=== PATIENT | female | born 1935 | race Caucasian/White ===

== ENCOUNTER 2016-11-20 09:20 | Day surgery (SDC) | payer MEDICARE ==
[~2016-11-20] VITALS: Ht 162.6 cm; Wt 65.8 kg
--- NOTE | 2016-11-20 07:45 | PCM.HPANE ---
Patient Data Surgeon Admitting Provider: Attending Provider:Hank Graham MD Primary Care Physician:Tim Calderon MD Other Provider:[facility] Reason for Visit Diarrhea In Adult Patient Ht/WT & BMI Body Mass Index Allergies Coded Allergies: Penicillins (Verified Allergy, Severe, Anaphylaxis, 05/28/12) ciprofloxacin (Verified Allergy, Intermediate, 05/28/12) SORE JOINTS ciprofloxacin HCl (Verified Allergy, Intermediate, 05/28/12) SORE JOINTS Past Anesthesia History Anesthesia History: Denies:: Anesthesia Reactions Medications Reported Medications Ascorbate Calcium (Vitamin C)500 Mg Tablet1,000 Mg PO 11/18/16 Acetaminophen (Tylenol Arthritis)650 Mg Tablet.er650 Mg PO 11/18/16 Tolterodine Tartrate ER 4 Mg Capsule4 Mg PO DAILY 11/18/16 Metoprolol Succinate ER 100 Mg Tab.er.52g124 Mg PO DAILY Ref 0 11/18/16 Melatonin/Pyridoxine HCl (B6) (Melatonin 3 mg Tablet)1 Each Tablet1 Each PO DAILY 11/18/16 Loperamide 2 Mg Capsule2 Mg PO Q4H 11/18/16 Lisinopril 20 Mg Xatffh85 Mg PO DAILY 30 Days Ref 0 11/18/16 Apixaban (Eliquis)5 Mg Tablet5 Mg PO BID 11/18/16 Chlorthalidone 25 Mg Okhsfj79.5 Mg PO DAILY #30 TABLET 11/18/16 Multivits-Min/FA/Lycopene/Lut (Centrum Silver Tablet)1 Each Tablet1 Each PO 11/18/16 Discontinued Reported Medications Potassium Chloride ER 10 Meq Uwpazj55 Meq PO BID Ref 0 TAKE WITH FOOD 11/18/16 Cephalexin 500 Mg Dtwcov620 Mg PO QID #40 TABLET Ref 0 11/18/16 Doxycycline (Vibramycin)100 Mg Mkaxly807 Mg PO BID 7 Days 05/29/12 Metoprolol Suc-Expunged Drug, Do Not Renew! 50 Mg Iahm920 Mg PO DAILY #60 TAB 05/29/12 Trimethoprim-Expunged Drug, Do Not Renew! (Proloprim-Expunged Drug, Do Not Renew !)100 Mg Wjc180 Mg PO PRN 05/27/12 Sulfa/Trimethoprim-Expunged Drug, Do Not Daniele (Septra 80/400-Expunged Drug, Do Not Renew!)1 Tab Tablet1 Tab PO UD Take as needed if bladder infection 05/27/12 Spironolactone-Expunged Drug, Do Not Renew! 25 Mg Ifvtft32 Mg PO DAILY 05/27/12 Multivitamin (Multi-Vitamin Daily)1 Each Tablet1 Each PO DAILY 05/27/12 Lisinopril-Expunged Drug, Do Not Renew! 40 Mg Anaame26 Mg PO DAILY Hold for SBP < 90 05/27/12 Krill/[place]-3/Dha/Epa/Lipids (Krill Oil 300 Mg Softgel)1 Each Capsule1 Each PO DAILY 05/27/12 Chlorthalidone-Expunged Drug, Do Not Renew! 25 Mg Tablet0.5 Tab PO DAILY Take 1/2 tab (12.5mg) daily 05/27/12 Aspirin-Expunged Drug, Do Not Renew! (Low Dose Aspirin-Expunged Drug, Do Not Renew!)81 Mg Tablet.dr81 Mg PO DAILY 05/27/12 History History of ENT Problems?: No HEENT History: Denies:: Abnormal Airway Cataracts Difficult Intubation Dysphagia Glaucoma Hearing Problem Sinus Problem TMJ Denture Type: None Teeth Condition: Within Normal Limits Hx of Heart Problems?: Yes Cardiovascular History: Positive for:: AICD Hypertension Irregular Heartbeat (ATRIAL FIBRILLATION/PAROXYSMAL) Denies:: Abdominal Aortic Aneurism Atrial Fibrillation Cardiac Surgery Chest Pain Congestive Heart Failure Coronary Artery Disease Edema Heart Murmur Pacemaker Peripheral Vascular Rheumatic Fever Thrombophlebitis Valvular Heart Disease Hx of Respiratory Problem?: No Respiratory History: Positive for:: Asthma (IN THE PAST) Hx Neurologic Problems?: No Hx of GI Problems?: Yes Gastrointestinal History: Denies:: Cirrhosis Diverticulitis Gall Bladder Disease Gastroesphageal Reflux Gastrointestinal Bleeding Heartburn Hepatitis Hiatal Hernia Liver Disease Rectal Bleeding Hx of Problems?: Yes Genitourinary History: Denies:: HX of Hemodialysis Kidney Stones Urinary Tract Infection Hx Musculoskeletal Problems?: No Hx of Psycho/Social Problems?: No Hx Surgeries?: Yes (HYSTERECTOMY) Hx Any Other Health Problems?: No History Blood Transfusions: Denies:: Blood Transfusions Hx Alcohol Use: Yes (GLASS OF WINE SEVERAL TIMES WEEKLY ) Stop/Bang Risk Assessment Category Category 1A: Patient has history of documented sleep apnea, and HAS NOT received any narcotic, sedative or anesthesia administration during this stay. Category 1B: Patient has history of documented sleep apnea, and HAS received any narcotic , sedative or anesthesia administration during this stay Category 2: Patient has SUSPECTED Obstructive Sleep Apnea, and HAS received any narcotic , sedative or anesthesia administration during this stay. Category 3: Patient has SUSPECTED Obstructive Sleep Apnea and HAS NOT received narcotic, sedative or anesthesia administration during this stay. Category 4: Outpatient in Procedural Areas with known sleep apnea or who screen positive for High Risk via the STOP/BANG questionnaire. Exam Exam General Appearance: Alert, Oriented X3, Cooperative, No Acute Distress HEENT/AIRWAY: MP 2, Neck Movement Lungs: Normal Air Movement Heart: Exam Unremarkable Plan Impression Patient chart reviewed, patient interviewed and anesthestic plan with risks, benefits, and alternatives discussed, and informed consent obtained. ASA Physical Status: ASA2 Mod Systemic Disease Anesthetic Plan: MAC Bene/Risks/Altern/Consents: Yes HP Complete Prior to Induction: Yes Bhupinder Jimenez MD Nov 20, 2016 07:45
[~2016-11-20 09:20] MED LIST: ACET-2766 PO; APIX5TAB PO; ASCO-294 PO; CEPH500T PO; HYG25 PO; LISI-567 PO; LOPE2CAP PO; Lactated Ringer's 1,000 ML IV ONE; MELA1TAB28 PO; METO-274 PO; MULT-1073 PO; POTA10TA12 PO; TOLT4CAP13 PO
[2016-11-20] MEDS ORDERED: Propofol 10,000 mCg/mL 20 mL Inj ONE (09:21)
[2016-11-20 09:52] VITALS: BP 125/71; PULSE 82; RESP 14; O2SAT 99
[2016-11-20] MEDS ORDERED: Lactated Ringer's 1,000 ML IV SCH (12:25)
[2016-11-20] MEDS ORDERED: MetoCLOpramide 5 mg/mL 2 mL Inj IVPUSH PRN (12:25)
[2016-11-20] MEDS ORDERED: Ondansetron 2 mg/mL 2 mL Inj IVPUSH PRN (12:25)
[2016-11-20] MEDS ORDERED: Lactated Ringer's 1,000 ML IV ONE (12:59)
[2016-11-20 13:00] VITALS: BP 147/77; PULSE 83; RESP 14; O2SAT 100
--- NOTE | 2016-11-20 13:02 | PCM.ENDCOL ---
Colonoscopy Date of Service: Nov 20, 2016 Physician Hank Graham MD Pre Procedure Diagnosis: Diarrhea. She took eliquist this morning Post Procedure Dx & Findings: Polyp hemorrhoids diverticula Procedure Colonoscopy PROCEDURE IN DETAIL: Anesthesia used Prep fair Withdrawal time 11 minutes After unremarkable rectal examination the Olympus video colonoscope was inserted patient's anal canal and was advanced to cecum. Landmarks were identified including the ileocecal valve and appendiceal orifice. Scope further advanced to the terminal ileum. Advanced 8 cm. Visualized terminal ileum showed healthy villous structures without any ulcer or mass or erosions. Scope was withdrawn systematically. Visualized colonic mucosa showed healthy shiny mucosa with normal healthy-appearing vasculature. Patient had one other polyp in the proximal transverse colon. Patient also had couple smaller polyps few millimeters in size in the ascending colon. Also couple of polyps few millimeters in site also noted in the transverse colon as well. Patient had diverticula from the transverse colon but mostly in the sigmoid colon small to medium-sized. In the rectum retroflexion was done which showed hemorrhoids. Anal canal was inspected carefully on the way out and hemorrhoids noted. Impression Several polyps; largest 1 cm in size. These were not taken out because the patient is using blood thinner i.e. eliquist. She was asked to hold for 5 days hard to colonoscopy however she did not. Diverticuli Hemorrhoids Normal terminal ileum. Random biopsies was not taken due to anticoagulation No evidence of colitis. Recommendation Follow up in GI clinic Diverticular diet Presedation Assessment Risks and Benefits Informed consent was obtained from the patient after all risks and benefits including but not limited to drug reaction, infection, pain, bleeding, perforation, as well as alternatives were discussed. Patient monitoring Continuous pulse oximetry, cardiac monitoring, blood pressure monitoring, IV access, and oxygen at 2L per nasal cannula. Complications There were no periprocedural complications identified. Post Procedure Plan Post Procedure Recommendations 1. Restrict activities today. 2. Resume normal activities in the morning. 3. Resume medications. 4. Patient informed of normal post procedure side effects as bloating, drowsiness, blood streaking in the stool. 5. average risk CRCS. If colon polyps come back as: -Hyperplastic- can repeat colonoscopy in 10 years -Tubular adenoma- repeat colonoscopy in 5 years -Tubulovillous/villous adenoma- repeat colonoscopy in 3 years -If any dysplasia- return to clinic as soon as possible 6. Please don't hesitate to call me with any questions. Hank Graham MD Nov 20, 2016 13:02
[2016-11-20 13:09] VITALS: BP 144/80; PULSE 71; RESP 14; O2SAT 100
[2016-11-20 13:15] VITALS: BP 137/90; PULSE 80; RESP 16; O2SAT 98
--- NOTE | 2016-11-20 13:23 | PCM.ANEP1 ---
Post Anesthesia PACU Phase 1 Assessment Vital Signs Vital Signs Date Time Temp Pulse Resp B/P Pulse Ox O2 Delivery O2 Flow Rate FiO2 11/20/16 13:15 80 16 137/90 98 Room Air 11/20/16 13:09 71 14 144/80 100 Room Air 11/20/16 13:00 83 14 147/77 100 Room Air 11/20/16 09:52 36.3 82 14 125/71 99 Room Air Anesthetic Administered: GA Level of Alertness: Awake, talking MUÑOZ's with Equal Strength: Yes Pain: No Nausea or Vomiting: No CV Function & Hydration Stable: Yes Airway Device: Oxygen Delivery: Room Air Lungs: Normal Air Movement PACU Phase 2 Assessment Complications: No Follow up Care: No Patient Instructions Provided: N/A Bhupinder Jimenez MD Nov 20, 2016 13:23
[2016-11-26] MEDS ORDERED: POTA10CA42 PO (18:06)
[2016-11-26] MEDS ORDERED: ESTR42.52 VG (18:06)
== END 2016-11-20 23:59 | disposition home or self-care (01) ==
LOC: END 09:20
PROVIDERS: ATTEND Internal Medicine
DX: K63.5 Polyp of colon (principal); K57.30 Diverticulosis of large intestine without perforation or abscess without bleeding; K64.8 Other hemorrhoids; R19.7 Diarrhea, unspecified; I10 Essential (primary) hypertension; I48.0 Paroxysmal atrial fibrillation; J45.909 Unspecified asthma, uncomplicated; Z79.899 Other long term (current) drug therapy; Z79.02 Long term (current) use of antithrombotics/antiplatelets
CPT/HCPCS: 45378; J2704; J7120

== ENCOUNTER 2016-11-27 00:04 | Day surgery (SDC) | payer MEDICARE ==
[2016-11-27] VITALS (9 sets, daily range): BP systolic 141–160; BP diastolic 64–80; PULSE 60–86; RESP 14–19; O2SAT 97–99
[~2016-11-27] VITALS: Ht 165.1 cm; Wt 65.9 kg
[~2016-11-27 00:04] MED LIST changes: -CEPH500T PO; +ESTR42.52 VG; -Lactated Ringer's 1,000 ML IV ONE; +POTA10CA42 PO; -POTA10TA12 PO
[2016-11-27] MEDS ORDERED: Vancomycin Inj 1,000 MG in IV Premix 1 EACH IV SCH (08:00)
[2016-11-27] MEDS ORDERED: 0.9% Sodium Chloride 1,000 ML IV SCH ×2 (08:00→11:15)
[2016-11-27 08:21] LABS: MONOCYTES % (AUTO) 16.3 % (4-12); Mean Corpuscular Hemoglobin 29.9 pg (27.0-35.0); NEUTROPHILS % (AUTO) 57.8 % (40-74); Platelet Count 215 bil/L (150-400)
[2016-11-27 08:56] LABS: INR 0.94 ratio
[2016-11-27] MEDS ORDERED: Water for Injection 50 ML IV ONE (09:26)
[2016-11-27] MEDS ORDERED: Heparin 10,000 Unit/1,000 mL NS Premix IV ONE (09:26)
[2016-11-27] MEDS ORDERED: Vancomycin 1,000 mg Inj ONE (09:26)
[2016-11-27] MEDS ORDERED: 0.9% Sodium Chloride 250 ML ONE (09:27)
[2016-11-27] MEDS ORDERED: Vancomycin 1,000mg/200 mL NS IV ONE (09:41)
[2016-11-27] MEDS ORDERED: Bupivacaine-MPF 0.5% 30 mL Inj ONE (10:25)
[2016-11-27] MEDS ORDERED: fentaNYL-PF 50 mCg/mL 2 mL Inj ONE ×2 (10:26→10:44)
[2016-11-27] MEDS ORDERED: Ondansetron 2 mg/mL 2 mL Inj IVPUSH PRN (11:15)
[2016-11-27] MEDS ORDERED: HYDROcodone-APAP 5-325 mg Tablet PO PRN (11:15)
--- NOTE | 2016-11-27 12:02 | NUR ---
Received Received from labor operator about 1140. Dressing c/d/i. Denies pain. Tele 100% Vpaced. VSS. Assisted with bedpan. Taking po well. Monitor per orders.
--- NOTE | 2016-11-27 12:06 | OP ---
[address] [address] OPERATIVE REPORT PATIENT: BRYAN SILVERMAN : 1935 MR#: [id number] ADMIT: 11/27/2016 JOB ID: [id number] DATE OF SURGERY: 11/27/2016 PREOPERATIVE DIAGNOSIS(ES): Biventricular ICD battery depletion. POSTOPERATIVE DIAGNOSIS(ES): Biventricular ICD battery depletion. PROCEDURES PERFORMED: Biventricular ICD generator replacement (multilead ICD generator). SURGEON: Artificial Insemination Technician: Ozzy Munoz MD electrophysiology attending HEAD LINEMAN: Josh Solares. IMPLANTED DEVICE: Medtronic Viva XT pulse generator model [id number], serial number [id number]. EXPLANTED DEVICE: Medtronic Protect XT pulse generator model [id number], serial number [id number]. CHRONIC DEVICES: 1. Right atrial lead Medtronic 5076, 52 cm. Serial number [id number]. 2. RV lead single coil VF4 Medtronic 6935M, 62 cm. Serial number [id number]. 3. LV lead Medtronic 4194, 88 cm. Serial number [id number]. ANESTHESIA: Bolus dosing of Versed and fentanyl was utilized for an appropriate level of sedation. INDICATION: The patient is a pleasant 81-year-old woman with severe cardiomyopathy who underwent biventricular ICD implantation about five years ago. She subsequently normalized her ejection fraction and comes in for a generator replacement after reaching EVA. We discussed the risks and benefits. PROCEDURAL DESCRIPTION: Following informed consent, the patient was taken to the EP laboratory in a fasting nonsedated state, where she was prepped in the usual sterile fashion. The left infraclavicular surgical scar was infiltrated with 40 mL of a 50/50 mixture of bupivacaine and lidocaine. Once adequate anesthesia had been achieved, a 4 cm incision was performed overlying the previous surgical scar. Dissection was carried down to the capsule and the leads and generator were freed loose of adhesions. The leads were inspected and shown to be intact. The pocket was copiously irrigated with antibiotic solution. The leads were disconnected from the chronic generator and connected to a new generator. The entire system was replaced into the capsule. The leads were tested through the new generator and had excellent sensing impedances and thresholds. The patient was in atrial fibrillation during the procedure. The incision was then closed with running layers of absorbable suture. The wound was dressed with skin adhesive and a small dressing. At the end the procedure the needle, sponge, and instrument counts were all correct. COMPLICATIONS: None. ESTIMATED BLOOD LOSS: Negligible. DEVICE MEASURED DATA: 1. Right atrial lead 3.3 mV, 399 ohms. 2. RV lead 17.9 mV, ohms, 0.75 V at 0.4 msec. 3. LV lead 285 ohms at 1.25 V at 0.7 msec. FINAL PROGRAM PARAMETERS: 1. DDDR 60-130 beats per minute with mode switch to DDIR. 2. VF zone at 188 beats per minute. Initial NID 30-40. Redetect ATP during charge followed by 35 joules x6. 3. VT monitor zone at 150 beats per minute. IMPRESSION: Successful biventricular implantable cardioverter-defibrillator generator replacement. PLAN: 1. Recovery and discharge from the [facility]. 2. Resume anticoagulation. 3. Doxycycline 100 mg p.o. daily x7 days. 4. Wound check in one week. ATTENDING STATEMENT: Ozzy Munoz MD, electrophysiology attending, was present for and supervised/performed all aspects of this procedure.
[2016-11-27] MEDS ORDERED: DOXY100T2 PO (12:20)
--- NOTE | 2016-11-27 14:35 | NUR ---
Recovery/Discharge No change in assessment. Bedrest complete at 1340. Pt. eating lunch. Up and ambulated to bathroom and jang about 1405 and tolerated well without change in assessment. Discharge instructions given. See Sheets. Verbalizes understanding. Discharged ambulatory with and all belongings at 1430 in no distress.
== END 2016-11-27 23:59 | disposition home or self-care (01) ==
LOC: SOUO 00:04
PROVIDERS: ATTEND Internal Medicine Cardiovascular Disease
DX: Z45.02 Encounter for adjustment and management of automatic implantable cardiac defibrillator (principal); I42.8 Other cardiomyopathies; I44.7 Left bundle-branch block, unspecified; Z79.01 Long term (current) use of anticoagulants; I34.0 Nonrheumatic mitral (valve) insufficiency; I10 Essential (primary) hypertension; I48.0 Paroxysmal atrial fibrillation
CPT/HCPCS: 33264; 36415; 80048; 85025; 85610; 93005; 99152; 99153; C1882; J1644; J2250; J3010; J3370; J7050